=== PATIENT | male | born 1955 | race African-American/Black ===

== ENCOUNTER 2019-08-28 12:30 | Emergency (ER) | payer MEDICARE, OTHER ==
[~2019-08-28] VITALS: Ht 175.3 cm; Wt 65.8 kg
[2019-08-28 12:42] VITALS: BP 122/83
[2019-08-28] MEDS ORDERED: NKM (12:46)
--- NOTE | 2019-08-28 12:47 | NUR ---
ED Nurse Note: pt presents to ED c/o R elbow pain and swelling x 1 week. pt denies any injury or trauma to the area but states that it hurts with movement that he would rate an 8/10. pt has a history of [place], CA, and DM but is not taking any medications. pt is blind and walks using a walking cane with a steady gait. pt denies any other symptoms at this time.
--- NOTE | 2019-08-28 13:49 | Emergency Room Report ---
History of Present Illness General Chief Complaint: Upper Extremity Injury Source: Patient Present Illness HPI Disclaimer: Please note that this report is being documented using [employer] technology. This can lead to erroneous entry secondary to incorrect interpretation by the dictating instrument. HPI: 63-year-old male who is legally blind presents for evaluation of right elbow pain. Symptoms have been present for approximately 2 weeks. Notes a sharp pain over the lateral aspect of the right elbow that sometimes radiates into the mid forearm. He does not believe he fell but vaguely remembers having a door slam into his right arm. He denies any significant limitation in range of motion. No pain in the shoulder, wrist or hand. There is no overlying skin breakdown abrasion or laceration. He notes some swelling over the lateral aspect and a "bump" that was not there before. PMH: Legally blind, CAD, diabetes PSH: Cardiac stent Allergies: Morphine, penicillin Social Hx: Denies Allergies: Coded Allergies: MORPHINE (Verified Allergy, Unknown, 08/28/19) PENICILLINS (Verified Allergy, Unknown, 08/28/19) Nursing Documentation-PM Past Medical History: No History, Except For Hx Cardiac Problems: No - HEART ATTACK 2013 Hx Diabetes: Yes Hx Cancer: Yes Review of Systems All Other Systems: negative except mentioned in HPI Physical Exam Vital Signs Date Time Temp Pulse Resp B/P (MAP) Pulse Ox O2 Delivery O2 Flow Rate FiO2 08/28/19 12:42 97.7 16 122/83 97 Room Air 08/28/19 12:42 62 General: Awake and alert, no acute distress HEENT: NC/AT Resp: Normal work of breathing. Skin: Intact. No abrasions, laceration or rash over the exposed skin MSK: Normal tone and bulk. Moving all extremities. No obvious deformity. There is tenderness palpation over the lateral epicondyle in the right elbow with an increased prominence of the bony region. Possible bone growth. No overlying skin breakdown. No effusion, no significant edema or overlying skin changes. Able to flex and extend, pronate and supinate. Fingers, wrist and shoulder have full range of motion. Neuro: Awake and alert. Mentating appropriately. Medical Decision Making Diagnostic Impression: Primary Impression: Elbow pain, right Additional Impression: Avulsion fracture ER Course This 63-year-old male presenting for evaluation of right elbow pain. Possible injury 1 week ago and a slight bony prominence on the lateral epicondyle. Will obtain an x-ray to evaluate. His pain is well controlled currently. He is also requesting a prescription for a new white came which I will provide Other X-Ray Diagnostic Results Other X-Ray Diagnostic Results : X-Ray ordered: Right elbow # of Views/Limited Vs Complete: 3 View Indication: Pain EP Interpretation: Yes Interpretation: no dislocation, no soft tissue swelling, no fractures, other - Possible anterior fat pad sign, possible avulsion at the coronoid process Impression: Other - Possible avulsion fracture at the olecranon. Possible anterior fat pad sign. No obvious dislocation. Reevaluation Time: 14:43 Last Vital Signs Date Time Temp Pulse Resp B/P (MAP) Pulse Ox O2 Delivery O2 Flow Rate FiO2 08/28/19 12:42 97.7 62 16 122/83 (96) 97 Room Air Reevaluation Impression Right elbow shows a possible avulsion fracture at olecranon and a possible anterior fat pad sign which may be physiologic or represent a radial head fracture. There is no posterior sign no obvious fracture dislocation otherwise appreciated. Patient questing to be splinted and given a sling which we will provide. I have also given a prescription for a new walking stick. Unfortunately, we do not have one in the hospital to provide to them. He will follow-up with his PMD. Discussed reasons to return to the emergency department. He understands and agrees with this treatment plan will be discharged home. Disposition: HOME, SELF-CARE Condition: Stable Scripts Cane (CANE) 1 Each Each EACH for blind, #1 Prov: Onesimo Weiss MD 08/28/19 Ibuprofen* (MOTRIN*) 600 Mg Tablet 600 MG ORAL Q8H PRN for For Pain, #30 TAB 0 Refills Prov: Onesimo Weiss MD 08/28/19 Onesimo Weiss MD Aug 28, 2019 13:49
--- NOTE | 2019-08-28 14:00 | NUR ---
ED Nurse Note: pt given a sandwich and juice
[2019-08-28] MEDS ORDERED: CANE1 EACH MC (15:10)
[2019-08-28] MEDS ORDERED: IBUPROFEN600 MG ORAL (15:10)
--- NOTE | 2019-08-28 15:20 | Diagnostic Imaging Report ---
Indications:Pain, trauma Technique: Three or 4 views of the right elbow Comparison: None Findings: There is olecranon spur. Small ossific density projects at the posterior aspect of the spur. No other evidence of acute fracture. No dislocations. The joint spaces are preserved. Impression: Small ossific density projecting at the tip of the olecranon, could indicate chronic degenerative changes or could represent an acute avulsion or chip fracture. Correlate with clinical findings Findings discussed by phone with Dr. Weiss in the emergency room at the time of interpretation
[2019-08-28 15:35] VITALS: BP 134/91
--- NOTE | 2019-08-28 15:35 | NUR ---
ED Nurse Note: pt is stable and will be d/c home. he understands he needs to f/u with ortho and will call his insurance company and figure out what his options are. pt asked for another sandwich and juice which he was d/c home with. another pt offered pt a bag of andrea sun juice which he also drank prior to discharge. pt was put in arm splint by saurav Milner. he understands discharge instructions and to return to ED for worsening of symptoms and any other concerns.
== END 2019-08-28 15:35 | disposition home or self-care (01) ==
LOC: EMR 13:15
DX: S42.401A Unspecified fracture of lower end of right humerus, initial encounter for closed fracture (principal); I25.10 Atherosclerotic heart disease of native coronary artery without angina pectoris; E11.9 Type 2 diabetes mellitus without complications; H54.8 Legal blindness, as defined in USA; Z95.5 Presence of coronary angioplasty implant and graft; Z88.0 Allergy status to penicillin; Z88.6 Allergy status to analgesic agent; I25.2 Old myocardial infarction; Z85.9 Personal history of malignant neoplasm, unspecified; W20.8XXA Other cause of strike by thrown, projected or falling object, initial encounter; Y92.9 Unspecified place or not applicable
CPT/HCPCS: 99283

== ENCOUNTER 2019-09-17 12:03 | Emergency (ER) | payer MEDICARE, OTHER ==
[~2019-09-17] VITALS: Ht 175.3 cm; Wt 64.9 kg
[~2019-09-17 12:03] MED LIST: CANE1 EACH MC; IBUPROFEN600 MG ORAL; NKM
[2019-09-17 12:22] VITALS: BP 100/65
--- NOTE | 2019-09-17 13:30 | NUR ---
ELOPEMENT: pt. eloped after changing the cast that pt. is requesting. no s/s of acute distress during the patient care. MALINAD made aware. CN aware
--- NOTE | 2019-09-18 14:22 | Emergency Room Report ---
History of Present Illness General Chief Complaint: Upper Extremity Injury Source: Patient Present Illness Allergies: Coded Allergies: MORPHINE (Verified Allergy, Unknown, 08/28/19) PENICILLINS (Verified Allergy, Unknown, 08/28/19) Nursing Documentation-H Hx Cardiac Problems: No - HEART ATTACK 2013 Hx Diabetes: Yes Hx Cancer: Yes Physical Exam Vital Signs Date Time Temp Pulse Resp B/P (MAP) Pulse Ox O2 Delivery O2 Flow Rate FiO2 09/17/19 12:22 98.2 72 18 100/65 (77) 100 Room Air Medical Decision Making Diagnostic Impression: Primary Impression: Injury of upper extremity Additional Impressions: Elbow pain, right Patient left without being seen ER Course Patient left prior to MD evaluation Last Vital Signs Date Time Temp Pulse Resp B/P (MAP) Pulse Ox O2 Delivery O2 Flow Rate FiO2 09/17/19 12:22 98.2 18 100/65 100 Room Air 09/17/19 12:22 72 Status: unchanged Disposition: LEFT W/OUT BEING SEEN Condition: Stable Scripts No Active Prescriptions or Reported Meds Referrals: NOT CHOSEN IPA/,REFERRING (PCP) Enoc Rich MD Sep 18, 2019 14:22
== END 2019-09-17 13:30 | disposition left against medical advice (07) ==
LOC: EMR 13:30
DX: M25.521 Pain in right elbow (principal); E11.9 Type 2 diabetes mellitus without complications; I25.2 Old myocardial infarction; Z88.0 Allergy status to penicillin; Z88.6 Allergy status to analgesic agent; Z85.9 Personal history of malignant neoplasm, unspecified
CPT/HCPCS: 99282